=== PATIENT | female | born 1990 | race Caucasian/White ===

== ENCOUNTER 2023-03-17 00:56 | Inpatient (IN) | payer BC ==
[2023-03-17] MEDS ORDERED: OXYTOCIN 10 UNIT/ML 1 ML VIAL IM PRN (02:27)
[2023-03-17] MEDS ORDERED: LIDOCAINE 0.5% (PF) 5 MG/ML (50 ML SDV) SQ PRN (02:27)
[2023-03-17] MEDS ORDERED: TERBUTALINE 1 MG/ML VIAL SQ PRN (02:27)
[2023-03-17] MEDS ORDERED: TRANEXAMIC 1,000 MG/100ML-NACL 1,000 MG in EMPTY BAG 1 BAG IV PRN (02:27)
[2023-03-17] MEDS ORDERED: miSOPROStoL 200 MCG TAB PO PRN (02:27)
[2023-03-17] MEDS ORDERED: CARBOPROST TROMETHAMINE 250 MCG/ML 1 ML AMP IM PRN (02:27)
[2023-03-17] MEDS ORDERED: METHYLERGONOVINE 0.2 MG/ML 1 ML AMP IM PRN (02:27)
[2023-03-17] MEDS: LACTATED RINGERS 1,000 ML IV SCH ×2 (02:52→06:10)
[2023-03-17 03:39] LABS: Basophils % (A) 0 %; Eosinophils % (A) 0 %; HCT 39.7 % (34.0-46.0); HGB 13.4 gm/dL (11.4-16.0); Lymphocytes # (A) 1.6 k/uL (1.0-4.8); Lymphocytes % (A) 16 %; MCH 30.8 pg (25.0-35.0); MCHC 33.8 g/dL (31.0-37.0); MCV 91.2 fL (80.0-100.0); Mean Platelet Volume 10.2; Monocytes # (A) 0.5 k/uL (0-1.0); Monocytes % (A) 5 %; Neutrophils % (A) 78 %; Platelet Count 168 k/uL (150-450); RBC 4.35 m/uL (3.80-5.40); RDW 12.8 % (11.5-15.5); WBC 10.4 k/uL (3.8-10.6)
--- NOTE | 2023-03-17 04:47 | P.HPOB ---
History of Present Illness H&P Date: 03/17/23 Chief Complaint: labor 32 presents at 41 weeks in active labor. Her cervix is 5 cm dilated, 80% effaced, -1 station. She is xin every 2-4 minutes. heart tones are 140 with moderate variability and reactive. Review of Systems All systems: negative Constitutional: Denies chills, Denies fever Eyes: denies blurred vision, denies pain Ears, nose, mouth and throat: Denies headache, Denies sore throat Cardiovascular: Denies chest pain, Denies shortness of breath Respiratory: Denies cough Gastrointestinal: Denies abdominal pain, Denies diarrhea, Denies nausea, Denies vomiting Genitourinary: Denies dysuria, Denies hematuria Musculoskeletal: Denies myalgias Integumentary: Denies pruritus, Denies rash Neurological: Denies numbness, Denies weakness Psychiatric: Denies anxiety, Denies depression Endocrine: Denies fatigue, Denies weight change Past Medical History Past Medical History: No Reported History History of Any Multi-Drug Resistant Organisms: None Reported Additional Past Surgical History / Comment(s): Breast reduction in 2016 Past Anesthesia/Blood Transfusion Reactions: No Reported Reaction Past Psychological History: No Psychological Hx Reported Smoking Status: Never smoker Medications and Allergies Home Medications Medication Instructions Recorded Confirmed Type No Known Home Medications 03/17/23 03/17/23 History Allergies Allergy/AdvReac Type Severity Reaction Status Date / Time No Known Allergies Allergy Verified 03/17/23 01:10 Exam Osteopathic Statement: *. No significant issues noted on an osteopathic structural exam other than those noted in the History and Physical/Consult. Vital Signs Temp Pulse Resp BP Pulse Ox 03/17/23 01:10 98.0 F 102 H 16 121/82 99 Intake and Output 03/16/23 03/16/23 03/17/23 14:59 22:59 06:59 Other: Weight 72.121 kg Heart: Regular rate and rhythm Lungs: Clear to auscultation bilaterally Abdomen: Soft, nontender Extremities: Negative Homans sign Results Result Diagrams: 03/17/23 02:35 Abnormal Lab Results - Last 24 Hours (Table) 03/17/23 Range/Units 02:35 Neutrophils # 8.0 H (1.3-7.7) k/uL Assessment and Plan (1) Active labor Current Visit: Yes Status: Acute Code(s): [id number] - SNOMED Code(s): 418231748 (2) 41 weeks gestation of Current Visit: Yes Status: Acute Code(s): O48.0 - POST-TERM ; Z3A.41 - 41 WEEKS GESTATION OF SNOMED Code(s): 44498847 Plan: 1. Expectant management 2. Anticipate normal vaginal delivery
[2023-03-17] MEDS ORDERED: NALBUPHINE 10 MG/ML (10 ML MDV) IV PRN (06:52)
[2023-03-17] MEDS ORDERED: OXYTOCIN 30 UNITS/500 ML NS 30 UNIT in SALINE 1 500ML.BAG IV SCH ×2 (07:00→09:00)
[2023-03-17] MEDS ORDERED: IBUPROFEN 600 MG TAB PO PRN (08:59)
[2023-03-17] MEDS ORDERED: ACETAMINOPHEN TAB 325 MG TAB PO PRN (08:59)
[2023-03-17] MEDS ORDERED: diphenhydrAMINE 50 MG/ML 1 ML VIAL IVP PRN ×2 (08:59)
[2023-03-17] MEDS ORDERED: HYDROCORTISONE 2.5% RECTAL CREAM 30 GM TUBE RECTAL PRN (08:59)
[2023-03-17] MEDS ORDERED: diphenhydrAMINE 50 MG CAP PO PRN (08:59)
[2023-03-17] MEDS ORDERED: diphenhydrAMINE 25 MG CAP PO PRN (08:59)
[2023-03-17] MEDS ORDERED: BENZOCAINE/MENTHOL SPRAY 1 GM/SPRAY AEROSOL TOPICAL PRN (08:59)
[2023-03-17] MEDS ORDERED: LANOLIN CREAM 5 GM TUBE TOPICAL PRN (08:59)
[2023-03-17] MEDS ORDERED: SIMETHICONE 80 MG CHEWABLE PO PRN (08:59)
[2023-03-17] MEDS ORDERED: ZOLPIDEM 5 MG TAB PO PRN (08:59)
[2023-03-17] MEDS ORDERED: SENNOSIDES-DOCUSATE SODIUM 1 EACH TAB PO SCH (20:00)
[2023-03-18 03:55] VITALS: RESP 18
[2023-03-18 07:28] LABS: Basophils % (A) 0 %; Eosinophils # (A) 0.1 k/uL (0-0.7); Eosinophils % (A) 1 %; HCT 36.9 % (34.0-46.0); HGB 12.3 gm/dL (11.4-16.0); Lymphocytes # (A) 1.6 k/uL (1.0-4.8); Lymphocytes % (A) 17 %; MCH 30.9 pg (25.0-35.0); MCHC 33.4 g/dL (31.0-37.0); MCV 92.7 fL (80.0-100.0); Mean Platelet Volume 10.5; Monocytes # (A) 0.4 k/uL (0-1.0); Monocytes % (A) 5 %; Neutrophils # (A) 7.3 k/uL (1.3-7.7); Neutrophils % (A) 76 %; Platelet Count 144 k/uL (150-450); RBC 3.97 m/uL (3.80-5.40); RDW 13.3 % (11.5-15.5); WBC 9.6 k/uL (3.8-10.6)
--- NOTE | 2023-03-18 07:44 | P.PROBDLV ---
Vaginal Delivery Note - . Vaginal Delivery Note: 32 presents at 41 weeks in active labor. Her cervix is 5 cm dilated, 80% effaced, -1 station. She is xin every 2-4 minutes. heart tones are 140 with moderate variability and reactive. Amniotomy performed at 4:40 AM and clear fluid noted. She was 7 cm for a couple hours so Pitocin augmentation was started. When she was completely dilated, she pushed, delivered a viable female infant over intact perineum at 8:45 AM. Head delivered OA, anterior shoulder delivered gentle downward guidance by posterior shoulder and rest of body. Nose and mouth bulb suctioned, cord clamped and cut, infant placed mother's abdomen. Apgars 9, 9, weight 8 lbs. 10 oz. Placenta delivered spontaneously, intact with three-vessel cord at 8:47 AM. Vagina, cervix, and perineum were inspected. First-degree midline laceration was repaired with 3-0 Vicryl. Estimated blood loss 200 mL. Mother and baby in stable condition.
--- NOTE | 2023-03-18 07:54 | P.DS ---
Providers Date of admission: 03/17/23 02:26 Expected date of discharge: 03/18/23 Attending physician: Naila Jaime Primary care physician: Naila Jaime - Discharge Diagnosis(es) (1) Active labor Current Visit: Yes Status: Resolved (2) 41 weeks gestation of Current Visit: Yes Status: Resolved (3) Status post normal vaginal delivery Current Visit: Yes Status: Acute Hospital Course: Presented at 41 weeks in active labor. She underwent a normal vaginal delivery. course has been uneventful. She denies nausea, vomiting, chest pain, shortness of breath or calf pain. Patient will be discharged home day #1 in stable condition to follow-up with me in 6 weeks. Plan - Discharge Summary New Discharge Prescriptions: New Ibuprofen [Motrin] 600 mg PO Q6HR PRN #30 tab PRN Reason: Mild Pain (Scale 1 To 3) Discharge Medication List Ibuprofen [Motrin] 600 mg PO Q6HR PRN #30 tab 03/18/23 [Rx] Follow up Appointment(s)/Referral(s): Naila Jaime DO [Primary Care Provider] - 04/25/23 3:45 pm Discharge Disposition: HOME SELF-CARE
[2023-03-18 10:09] VITALS: BP 105/72; PULSE 79; TEMP 97.7
== END 2023-03-18 10:55 | disposition home or self-care (01) | DRG 807 ==
LOC: FBPOP 00:56 → 4FBP 02:26
PROVIDERS: ADMIT Obstetrics & Gynecology; ATTEND Obstetrics & Gynecology
PROC: 10E0XZZ Delivery of Products of Conception, External Approach (ICD-10-PCS; principal; 2023-03-17)
PROC: 0HQ9XZZ Repair Perineum Skin, External Approach (ICD-10-PCS; 2023-03-17)
DX: O48.0 Post-term pregnancy (principal); Z37.0 Single live birth; O70.0 First degree perineal laceration during delivery; Z3A.41 41 weeks gestation of pregnancy
CPT/HCPCS: 59025; 85025; 86850; 86900; 86901; 99213